=== PATIENT | male | born 1940 | race African-American/Black ===

== ENCOUNTER 2019-09-03 11:37 | Outpatient (CLI) | payer MEDICARE ==
--- NOTE | 2019-09-03 12:50 | RAD ---
LEFT HAND THREE VIEWS: HISTORY: Left hand pain for three days. COMPARISON: None. FINDINGS: Three views of the left hand show no evidence of acute fracture or dislocation. No degenerative mayer es are seen in the hand. Moderate degenerative changes are seen in the radial carpal joint. IMPRESSION: No evidence of acute osseous abnormality. POS: [facility]
--- NOTE | 2019-09-03 13:57 | RAD ---
RADIOGRAPH LEFT WRIST 3 VIEWS: DATE: 09/03/2019. HISTORY: A 79-year-old male with 3 days of left wrist pain. COMPARISON: None. FINDINGS: There is mild widening of the scapholunate interval. There is narrowing of the radioscaphoid joint s pace with sclerosis. Diffuse severe osteopenia. No fracture is identified. However, if there is sn uffbox tenderness following trauma that suggests an occult scaphoid fracture, then the general recomm endation is immobilization and followup imaging in 5-10 days. 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 IMPRESSION: 1. 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 2. Widening of the scapholunate interval raising the possibility of tear of the scapholunate ligamen t. POS: [facility]
== END 2019-09-03 11:38 | disposition home or self-care (01) ==
LOC: BICRAD 11:37
PROVIDERS: ATTEND Family Medicine
DX: M79.642 Pain in left hand (principal); M19.032 Primary osteoarthritis, left wrist

== ENCOUNTER 2024-03-03 09:57 | Outpatient (CLI) | payer MEDICARE | END 2024-03-03 09:58 | disposition home or self-care (01) | LOC: BICULT 09:57 → EDBD 10:15 | PROVIDERS: ATTEND Internal Medicine Nephrology | DX: I13.10 Hypertensive heart and chronic kidney disease without heart failure, with stage 1 through stage 4 chronic kidney disease, or unspecified chronic kidney disease (principal); E11.22 Type 2 diabetes mellitus with diabetic chronic kidney disease; N18.9 Chronic kidney disease, unspecified; N40.0 Benign prostatic hyperplasia without lower urinary tract symptoms; K21.9 Gastro-esophageal reflux disease without esophagitis; M19.90 Unspecified osteoarthritis, unspecified site; J44.9 Chronic obstructive pulmonary disease, unspecified; E78.5 Hyperlipidemia, unspecified | CPT/HCPCS: 76770; 93975 ==